=== PATIENT | female | born 1950 | race Asian ===

== ENCOUNTER 2017-10-27 10:24 | Emergency (ER) | payer MEDICARE ==
[~2017-10-27] VITALS: Ht 149.9 cm; Wt 63.5 kg
[2017-10-27 10:43] VITALS: BP 96/55
--- NOTE | 2017-10-27 10:52 | NUR ---
PATIENT PRESENTS TO ED WITH C/O LT WRIST PAIN;PER PT PT FELL LAST NOC.DENIES HITTING HER HEAD/LOC;PT ALSO C/O LBP;LT WRIST IS SWOLLEN/HEMATOMA NOTED;PT CAN MOVE ALL HER LT H FINGERS; HX OF DEMENTIA AND RA;DENIES N/V/D; SKIN IS PINK/WARM/DRY; AAOX4 WITH EVEN AND STEADY GAIT; LUNGS CLEAR BL; HR EVEN AND REGULAR; PT DENIES ANY FEVER, CP, SOB, OR COUGH AT THIS TIME; PATIENT STATES PAIN OF 8/10 AT THIS TIME; PATIENT POSITIONED FOR COMFORT; ER MD MADE AWARE OF PT STATUS.
[2017-10-27] MEDS ORDERED: KETOROLAC 30 MG/ML VIAL IM ONE (11:20)
[2017-10-27] MEDS ORDERED: KETOROLAC 30 MG/ML VIAL ONE (11:20)
--- NOTE | 2017-10-27 11:31 | NUR ---
ABRASSION NOTED ON LT UPPER ARM;
--- NOTE | 2017-10-27 11:36 | NUR ---
PT WENT TO XRAY ACCOMPANIED BY TECH.
--- NOTE | 2017-10-27 12:01 | NUR ---
PT BACK FROM XRAY;NAD;WILL CONTINUE TO MONITOR PT.
[2017-10-27 13:17] VITALS: BP 141/60
--- NOTE | 2017-10-27 13:17 | NUR ---
Patient discharged with v/s stable. Written and verbal after care instructions given and explained. Patient alert, oriented and verbalized understanding of instructions. Wheel Chair Assisted with to car. All questions addressed prior to discharge. ID band removed. Patient advised to follow up with PMD. Rx of NORCO given. Patient educated on indication of medication including possible reaction and side effects. Opportunity to ask questions provided and answered.
== END 2017-10-27 13:17 | disposition home or self-care (01) ==
LOC: MED 10:24
DX: S52.502A Unspecified fracture of the lower end of left radius, initial encounter for closed fracture (principal); S30.0XXA Contusion of lower back and pelvis, initial encounter; F03.90 Unspecified dementia, unspecified severity, without behavioral disturbance, psychotic disturbance, mood disturbance, and anxiety; W18.39XA Other fall on same level, initial encounter; Y93.89 Activity, other specified; Y92.89 Other specified places as the place of occurrence of the external cause; Y99.8 Other external cause status
CPT/HCPCS: 29125; 72100; 73090; 73110; 96372; 99284; J1885